=== PATIENT | female | born 1955 | race Caucasian/White ===

== ENCOUNTER 2018-05-16 12:40 | Emergency (ER) | payer SELFPAY ==
[2018-05-16] MEDS ORDERED: Ibuprofen 600 MG TAB ONE (13:05)
--- NOTE | 2018-05-16 13:28 | RAD ---
LEFT FOOT THREE VIEWS: 05/16/2018 HISTORY: Foot pain for 10 days. COMPARISON: None. FINDINGS: There are degenerative changes involving the first metatarsophalangeal joint with mild joint space na rrowing and subchondral sclerosis. No displaced fracture or evidence of dislocation seen. IMPRESSION: No acute osseous abnormality. POS: [facility]
== END 2018-05-16 13:30 | disposition home or self-care (01) ==
LOC: MADERS 12:40
DX: S93.602A Unspecified sprain of left foot, initial encounter (principal); F32.9 Major depressive disorder, single episode, unspecified; F41.9 Anxiety disorder, unspecified; W10.9XXA Fall (on) (from) unspecified stairs and steps, initial encounter